=== PATIENT | male | born 1960 | race African-American/Black ===

== ENCOUNTER 2019-02-03 12:27 | Emergency (ER) | payer OTHER ==
[~2019-02-03] VITALS: Ht 177.8 cm; Wt 80.7 kg
[2019-02-03] MEDS ORDERED: PREDNISONE50 MG PO (14:48)
[2019-02-03] MEDS ORDERED: AZITHROMYCIN 2250 MG PO (14:48)
[2019-02-03 14:59] VITALS: BP 121/67
--- NOTE | 2019-02-04 08:58 | EKG ---
[place] [address] [employer] [place] [address] ELECTROCARDIOGRAM REPORT Name: ELEANOR LEONG Room #: DEP [facility]LEYNeelNeel[facility] [id number] ������������������ Admission: 02/03/19 ������������������ Attend Phys: Discharge: 02/03/19 ������������������ Date of : 58 Report #: [id number] ����������������������������������������������������������������� [id number] THIS REPORT FOR: //name// [facility] ED Test Date: 2019-02-03 Test Time: 13:34:17 Pat Name: ELEANOR LEONG Department: Room: Gender: M [employer]: Maddy MITTAL RN : 1960 Requested By: Sarath Hall Order Number: [id number] MD: Saw Hayes Measurements Intervals [place] Rate: 72 P: 67 WY: 166 QRS: -18 QRSD: 80 T: 19 QT: 395 QTc: 433 Interpretive Statements Sinus rhythm Borderline T wave abnormalities No previous ECG available for comparison Electronically Signed On 02-04-2019 8:58:10 CDT by Saw Hayes [email or web address] ��������������������������������������������� <ELECTRONICALLY SIGNED> ���������������������������������������� By: Saw Hayes MD, [facility] ��������������������������������������������� 02/04/19 [id number] Saw Hayes MD, FACC /EPI
== END 2019-02-03 15:00 | disposition home or self-care (01) ==
LOC: ER 12:27
DX: J44.1 Chronic obstructive pulmonary disease with (acute) exacerbation (principal); J06.9 Acute upper respiratory infection, unspecified; F17.210 Nicotine dependence, cigarettes, uncomplicated; I10 Essential (primary) hypertension; E11.9 Type 2 diabetes mellitus without complications; J45.909 Unspecified asthma, uncomplicated; N40.0 Benign prostatic hyperplasia without lower urinary tract symptoms; L40.9 Psoriasis, unspecified